=== PATIENT | male | born 1960 | race Caucasian/White ===

== ENCOUNTER 2018-05-26 05:32 | Day surgery (SDC) | payer BC ==
[~2018-05-26] VITALS: Ht 175.3 cm; Wt 100.7 kg
--- NOTE | ~2018-05-26 | PATH ---
[facility] [address] [place] [address] PATHOLOGY RPT PROCEDURE Name: LAZARO NAVA Room #: DEP [facility]..#: [id number] Admission: 05/26/18 Date of : 60 Discharge: 05/26/18 Report #: [id number] Path Case #: [id number] [facility] Accession Number: [id number] . 01 Material submitted: . HERNIA SAC . 01 Clinical history: . Umbilical hernia . 02 Diagnosis: Hernia sac, repair: - Congested fibrovascular connective tissue with focal mesothelial lining, compatible with hernia sac. 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 02 Electronically signed: . Genesis Giles MD, Pathologist NPI- [id number] . 01 Gross description: . The specimen is received in formalin, labeled "Lazaro Nava, hernia sac", is an irregular fragment of yellow lobulated soft tissue containing brown-white fibrous membrane measuring 6.0 x 3.5 x 1.5 cm. The specimen is serially section to show a yellow-orange homogeneous cut surface with brown-white fibrous tissue strands. Crew Leader tissue is submitted in A1-A2. (SWS; 05/26/2018) SHS/SHS . 02 Pathologist provided ICD-10: K42.9 . 02 CPT . 773634 Specimen Comment: A courtesy copy of this report has been sent to Specimen Comment: [phone], . Specimen Comment: Report sent to / DR WILSON Specimen Comment: A duplicate report has been generated due to demographic updates. Performed at: 01 [place] [id number] [address] [id number] MD Kevin Pack MD Phone: [phone] Performed at: [address] [id number] PATHOLOGY RPT PROCEDURE Name: LAZARO NAVA Room #: DEP [facility]#: [id number] Admission: 05/26/18 Date of : 60 Discharge: 05/26/18 Report #: [id number] Path Case #: [id number] [address] [place] [id number] MD Genesis Giles MD Phone: [phone]
--- NOTE | ~2018-05-26 | H ---
[facility] [address] HISTORY AND PHYSICAL Name: VERNA NAVA Room #: 150-3 [facility]..#: [id number] Admission: 05/26/18 Attend Phys: Walt Holland MD Discharge: Date of : 60 Report #: [id number] THIS REPORT FOR: //name// CC: Paul Holland Patient of Dr. Walt Holland and Dr. Paul Nick. DATE OF ADMISSION AND SURGERY: 05/26/2018. CHIEF COMPLAINT: Abdominal bulge. HISTORY OF PRESENT ILLNESS: The patient is a 57-year-old male who was found to have an umbilical hernia. He denies any significant pain or changes in bowel or bladder habits. PAST MEDICAL HISTORY: Unremarkable. MEDICATIONS: None. ALLERGIES: No known drug allergies. FAMILY HISTORY: Noncontributory. SOCIAL HISTORY: , does not smoke or drink alcohol. REVIEW OF SYSTEMS: Pertinent positives as above. Full review of systems as per the electronic medical record as reviewed by myself and otherwise unremarkable. PHYSICAL EXAMINATION: GENERAL: Well-developed, well-nourished white male, in no acute distress. VITAL SIGNS: Stable. He is afebrile. HEENT: Sclerae are nonicteric. Mucous membranes are moist and pink. NECK: There is no adenopathy, no thyromegaly. LUNGS: Clear to auscultation bilaterally. Normal excursion. CARDIOVASCULAR: Regular rate and rhythm. ABDOMEN: Soft, flat, nontender, no palpable masses, no organomegaly. There is an umbilical hernia, which is partially reducible. EXTREMITIES: No clubbing, cyanosis or edema. NEUROLOGIC: Intact. Clear mental status. IMPRESSION: A 57-year-old male with an umbilical hernia. We will perform an umbilical hernia repair under local IV sedation as an outpatient at [facility]. The procedure and its risks, benefits and possible [facility] [address] [place] [address] HISTORY AND PHYSICAL Name: BRANDYVERNA Henry Room #: 150-3 [facility]#: [id number] Admission: 05/26/18 Attend Phys: Walt Holland MD Discharge: Date of : 60 Report #: [id number] complications fully discussed with the patient, he states he understands, agrees with proposed surgery. <ELECTRONICALLY SIGNED> By: Walt Holland MD 05/26/18 1036 [id number] Walt Holland MD /nt
--- NOTE | ~2018-05-26 | O ---
[facility] [place] [address] OPERATIVE REPORT Name: BRANDYVERNA Room #: 150-3 [facility]..#: [id number] Admission: 05/26/18 Attend Phys: Walt Holland MD Discharge: Date of : 60 Report #: [id number] THIS REPORT FOR: //name// CC: Paul Holland DATE OF SERVICE: 05/26/2018 PATIENT OF: Dr. Walt Holland and Dr. Paul Nick. PREOPERATIVE DIAGNOSIS: Incarcerated umbilical hernia. POSTOPERATIVE DIAGNOSIS: Incarcerated umbilical hernia. PROCEDURE: Repair of an incarcerated umbilical hernia. SURGEON: Walt Holland M.D. ANESTHESIA: Local IV sedation. DESCRIPTION OF PROCEDURE: The patient was brought to the operating room and placed on the operating table in the supine position. Sequential compression devices were in place for DVT prophylaxis. There was no indication for preoperative antibiotics. The patient underwent IV sedation and the abdomen was then prepped and draped in a sterile fashion. Skin and subcutaneous tissue around the area was infiltrated with 0.5% Marcaine and 1% Xylocaine in a 1:1 mixture. Transverse skin incision was performed over the incarcerated hernia sac using #15 scalpel blade. Hemostasis obtained using electrocautery. Dissection was carried down through the subcutaneous tissue and around the incarcerated hernia sac, which was dissected free, clamped, excised and tied with a 2-0 chromic tie. There was some further preperitoneal bleeding, which was controlled with sutures and direct pressure and electrocautery. After assuring hemostasis was intact around the fascial site, the fascia was then closed using interrupted bmetgg-ig-laaea #1 Prolene sutures. The umbilicus was then tacked to the fascia using a simple interrupted 2-0 chromic suture and the deep and superficial subcutaneous tissue were then reapproximated using simple interrupted 2-0 chromic sutures. The skin was then closed using running 4-0 subcuticular Vicryl stitch. The wound was then dressed with Dermabond, Telfa, 4 x 4 gauze, sponge and tape. The patient was then taken to the recovery room awake, alert and in good condition. Estimated blood loss was approximately [facility] [address] [place] [address] OPERATIVE REPORT Name: BRANDYVERNA Room #: 150-3 [facility]#: [id number] Admission: 05/26/18 Attend Phys: Walt Holland MD Discharge: Date of : 60 Report #: [id number] 20-30 mL and the patient tolerated the procedure well. All sponge, lap and instrument counts correct x 2. By: [id number] Walt Holland MD /nt
[~2018-05-26 05:32] MED LIST: LOSARTAN POTAS100 MG PO; NORVASC2.5 MG PO
[2018-05-26 08:30] VITALS: BP 147/95
[2018-05-26] MEDS ORDERED: NORCO 5-325 TA1 EACH PO (10:41)
== END 2018-05-26 11:10 | disposition home or self-care (01) ==
LOC: OR 05:32 → TBA 05:34 → OR 09:47
DX: K42.0 Umbilical hernia with obstruction, without gangrene (principal); I10 Essential (primary) hypertension; Z98.890 Other specified postprocedural states; Z79.899 Other long term (current) drug therapy; Z87.891 Personal history of nicotine dependence; Z79.891 Long term (current) use of opiate analgesic
CPT/HCPCS: 50010; 50101; 50386; 50417; 54118; 56524; 56525; 56526; 62110; 62850; 70005